=== PATIENT | male | born 2000 | race Caucasian/White ===

== ENCOUNTER 2020-05-09 00:08 | Emergency (ER) | payer BC, SELFPAY ==
[2020-05-09 00:13] VITALS: BP 139/92; PULSE 79; RESP 18; TEMP 36.4; O2SAT 100
--- NOTE | 2020-05-09 00:23 | ED.DENTAL ---
HPI - Dental/Oral General Chief complaint: Dental/Oral Stated complaint: dental pain Time Seen by Provider: 05/09/20 00:21 Source: patient Mode of arrival: ambulatory Limitations: no limitations History of Present Illness HPI Narrative: 20 years old white male presents with dental pain mainly right lower side started few days ago. Patient does not remember when the last time was seen by dentist. Patient denies any fever, chills, nausea, vomiting, headache, difficulty swallowing. Related Data Allergies Allergy/AdvReac Type Severity Reaction Status Date / Time No Known Allergies Allergy Verified 05/09/20 00:21 Review of Systems Review of Systems: Narrative: CONSTITUTIONAL: Denies fever, chills, or sweats. EYES: Denies visual changes, redness, or discharge. ENT: Denies rhinorrhea, congestion, sore throat, or otalgia. CARDIOVASCULAR: Denies chest pain, palpitations, or edema. RESPIRATORY: Denies cough or dyspnea. GASTROINTESTINAL: Denies abdominal pain, nausea, vomiting, or diarrhea. GENITOURINARY: Denies dysuria or hematuria. SKIN: Denies rash or itching. MUSCULOSKELETAL: Denies back pain, joint pain, or myalgia. NEUROLOGIC: Denies headache, numbness, or weakness. PSYCHIATRIC: Denies anxiety or depression. Exam Narrative: Exam Narrative: General appearance: Well-developed, well-nourished Skin: Normal color Eyes: Clear conjunctiva ENT: Oropharynx normal, ears normal, nose normal, extensive widespread dental decay, no abscess, no discharge, no swelling Neck: Supple, nontender Chest and respiratory: Airway patent, no respiratory distress, no accessory muscle use Heart: Regular rate/rhythm Neurologic: Alert and oriented ?3, Course Course Emergency Course: Stable Vital Signs Vital signs: Vital Signs Temperature 36.4 C L 05/09/20 00:13 Pulse Rate 79 05/09/20 00:13 Respiratory Rate 18 05/09/20 00:13 Blood Pressure 139/92 H 05/09/20 00:13 Pulse Oximetry 100 05/09/20 00:13 Temperature 36.4 C L 05/09/20 00:13 Pulse Rate 79 05/09/20 00:13 Respiratory Rate 18 05/09/20 00:13 Blood Pressure 139/92 H 05/09/20 00:13 Pulse Oximetry 100 05/09/20 00:13 MDM - Dental/Oral MDM Narrative Medical decision making narrative: Dental decay, need to follow-up with a dentist as soon as possible Critical Care Time Critical Care Time Critical Care Time: No Discharge Plan Discharge Clinical Impression: Dental caries Patient Disposition: Home, Self-Care Condition: Stable Instructions: Toothache (ED) Additional Instructions: Call a dentist for appointment. Prescriptions: New penicillin V potassium 500 mg tablet 500 mg PO Q6H Qty: 40 RF: 0 ibuprofen 800 mg tablet 800 mg PO TID PRN (Reason: pain) Qty: 20 RF: 0 Follow-up/Referrals: PHYSICIAN NOT ON STAFF,NONSTAFF [Non-Staff] - Demarco Sanchez MD [Physician] - Stand Alone Forms: Work/School Release IP
[2020-05-09] MEDS: IBUPROFEN SUSPENSION 200 MG/10 ML UDC 800 MG PO (01:07)
[2020-05-09] MEDS: ACETAMINOPHEN ELIXIR 325 MG/10.15 ML UDC 650 MG PO (01:08)
[2020-05-09 01:20] VITALS: BP 133/89; PULSE 71; RESP 18; O2SAT 98
== END 2020-05-09 01:22 | disposition home or self-care (01) ==
PROVIDERS: Emergency Provider Emergency Medicine
DX: K02.9 Dental caries, unspecified (principal)
CPT/HCPCS: 99283; A9270